=== PATIENT | male | born 1930 | race Caucasian/White ===

== ENCOUNTER 2020-08-07 00:58 | Inpatient (IN) | payer MEDICARE, OTHER ==
[~2020-08-07] VITALS: Ht 157.5 cm; Wt 52.2 kg
--- NOTE | 2020-08-07 01:07 | NUR ---
Jason beatty in [facility] - 08/07/20 at 0251 by EVICTOR PT [id number].
--- NOTE | 2020-08-07 01:07 | NUR ---
MARIANA FROM BOARDING CARE. PT DENIES COMPLAINTS. 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 PT PLACED IN BED 6 ON MONITOR AND PULSE OX. TEMP 100.0, MD AWARE. MD AT BEDSIDE FOR EVAL, AWAITING ORDERS.
--- NOTE | 2020-08-07 01:14 | NUR ---
BLOOD WORK COLLECTED, SENT TO LAB.
--- NOTE | 2020-08-07 01:19 | NUR ---
EMT AT BEDSIDE FOR EKG
[2020-08-07] MEDS ORDERED: ACETAMINOPHEN ES 500 MG TABLET ONE (01:27)
--- NOTE | 2020-08-07 01:28 | NUR ---
URINE COLLECTED AND SENT TO LAB
[2020-08-07] MEDS ORDERED: ACETAMINOPHEN 325 MG TABLET PO ONE (01:30)
[2020-08-07 01:36] LABS: BILIRUBIN,URINE Negative (NEGATIVE); BLOOD, URINE Negative Ery/uL (NEGATIVE); COLOR,URINE Yellow (YELLOW); LEUKOCYTE ESTERASE ,URINE Negative (NEGATIVE); NITRITE, URINE Negative (NEGATIVE); PROTEIN,URINE Negative (NEGATIVE); UGLUCOSE Negative (NEGATIVE); UROBILINOGEN,URINE 0.2 EU/dL (0.2)
[2020-08-07 01:36] LABS: CALCIUM, SERUM 8.9 mg/dL (8.5-10.1); CARBON DIOXIDE 32 mmol/L (21-32); CHLORIDE 104 mmol/L (98-107); CREATININE 0.8 mg/dL (0.6-1.3); GLUCOSE 106 mg/dL (74-106); POTASSIUM 4.1 mmol/L (3.5-5.1); SODIUM SERUM 140 mmol/L (136-145); UREA NITROGEN, BLOOD 25 mg/dL (7-18)
[2020-08-07 01:42] LABS: ALANINE AMINOTRANSFERASE 17 U/L (12-78); ALBUMIN 3.2 g/dL (3.4-5.0); ALKALINE PHOSPHATASE 76 U/L (46-116); ASPARTATE AMINOTRANSFERASE 12 U/L (15-37); BILIRUBIN,DIRECT 0.1 mg/dL (0.0-0.2); BILIRUBIN,TOTAL 0.2 mg/dL (0.2-1.0); TOTAL PROTEIN, SERUM 6.8 g/dL (6.4-8.2)
[2020-08-07 01:59] LABS: BASOPHILS # (AUTO) 0.1 /CMM (0.0-0.2); BASOPHILS % (AUTO) 1.7 % (0.0-2.0); EOSINOPHILS % (AUTO) 2.7 % (0.0-6.0); HEMATOCRIT 39 % (39-51); HEMOGLOBIN 13.1 g/dL (13.5-17.5); LYMPHOCYTES # (AUTO) 1.8 /CMM (0.8-4.8); LYMPHOCYTES % (AUTO) 28.3 % (20.0-44.0); MEAN CORPUSCULAR HGB CONC 33 g/dl (31.0-36.0); MEAN CORPUSCULAR VOLUME 101 fL (80-96); MONOCYTES # (AUTO) 0.6 /CMM (0.1-1.30); MONOCYTES % (AUTO) 9.3 % (2.0-12.0); NEUTROPHILS # (AUTO) 3.6 /CMM (1.8-8.9); PLATELET COUNT (AUTO) 249 /CMM (150-450); WHITE BLOOD COUNT (AUTO) 6.2 K/uL (4.3-11.0)
--- NOTE | 2020-08-07 02:53 | NUR ---
PT ASSIGNED TO 201
--- NOTE | 2020-08-07 02:53 | NUR ---
REPORT CALLED TO M/S [place] WEBB.
[2020-08-07] MEDS ORDERED: MAGNESIUM HYDROXIDE 30 ML UDC PO PRN (03:00)
[2020-08-07] MEDS ORDERED: ONDANSETRON HCL/PF 4 MG/2 ML VIAL IVP PRN (03:00)
[2020-08-07] MEDS ORDERED: ACETAMINOPHEN 325 MG TABLET PO PRN (03:00)
[2020-08-07] MEDS ORDERED: MAG HYDROX/AL HYDROX/SIMETH 30 ML UDC PO PRN (03:00)
[2020-08-07] MEDS ORDERED: MORPHINE SULFATE INJ 2 MG/ML DISP.SYRIN IV PRN (03:00)
[2020-08-07 03:30] VITALS: BP_SYST 164; BP_DIAS 88; BP_DIAS 90
--- NOTE | 2020-08-07 03:30 | NUR ---
RN NOTES RECEIVED PT. FROM ER WITH OF UNABLE TO TAKE CARE HIMSELF AND FEBRILE, A/OX2,PT PULLED OUT HIS IV ACCESS, NOT IN DISTRESS SKIN ASSESSMENT, CALL LIGHT WITHIN REACH, [id number], CONTINUE TO MONITOR
--- NOTE | 2020-08-07 03:45 | NUR ---
RN NOTES NEW IV LINE INSERTED ON THE RIGHT FOREARM GAUGE 22
[2020-08-07] MEDS: IV NS 0.9% 1,000 ML IV PRN (06:04)
--- NOTE | 2020-08-07 06:37 | NUR ---
RN NOTES AWAKE, NOT IN DISTRSS, DENIES PAIN, MORNING CARE RENDERED, PT. NEEDS ATTENDED
--- NOTE | 2020-08-07 07:16 | NUR ---
REPRODUCTION ARTIST NOTES PATIENT IN BED ALERT ORIENTED X 1 . NO ACUTE DISTRESS NOTED. BREATHING UNLABORED. NO SOB NOTED .IV ACCESS PATENT AND INTACT, NO REDNESS, NO SWELLING NOTED. SAFETY MEASURES IN PLACE. CALL LIGHT WITHIN REACH. WILL CONTINUE TO MONITOR ACCORDINGLY.
--- NOTE | 2020-08-07 08:00 | NUR ---
MS RN NOTES PATIENT SEEN AND EVALUATED BY DR WALTER MICHELE MADE AWARE THAT ALLERGIES UNABLE TO OBTAIN.
[2020-08-07 08:10] VITALS: BP 165/91
[2020-08-07 08:24] LABS: BASOPHILS # (AUTO) 0.1 /CMM (0.0-0.2); BASOPHILS % (AUTO) 1.3 % (0.0-2.0); EOSINOPHILS % (AUTO) 2.1 % (0.0-6.0); HEMATOCRIT 41 % (39-51); HEMOGLOBIN 13.5 g/dL (13.5-17.5); LYMPHOCYTES # (AUTO) 1.8 /CMM (0.8-4.8); LYMPHOCYTES % (AUTO) 32.7 % (20.0-44.0); MEAN CORPUSCULAR HGB CONC 33 g/dl (31.0-36.0); MEAN CORPUSCULAR VOLUME 101 fL (80-96); MONOCYTES # (AUTO) 0.6 /CMM (0.1-1.30); MONOCYTES % (AUTO) 10.9 % (2.0-12.0); NEUTROPHILS # (AUTO) 2.9 /CMM (1.8-8.9); PLATELET COUNT (AUTO) 239 /CMM (150-450); RED BLOOD CELL COUNT(AUTO) 4.03 MIL/uL (4.5-6.0); WHITE BLOOD COUNT (AUTO) 5.5 K/uL (4.3-11.0)
[2020-08-07 08:39] LABS: ALBUMIN 3.4 g/dL (3.4-5.0); BILIRUBIN,TOTAL 0.4 mg/dL (0.2-1.0); CALCIUM, SERUM 8.9 mg/dL (8.5-10.1); CREATININE 0.7 mg/dL (0.6-1.3); MAGNESIUM 2.3 mg/dL (1.8-2.4); PHOSPHORUS 3.1 mg/dL (2.5-4.9); POTASSIUM 3.6 mmol/L (3.5-5.1)
--- NOTE | 2020-08-07 11:12 | NUR ---
MS RN NOTES RECEIVED NEW ORDER FROM DR WALTER MICHELE FOR Lovenox 40 MG SQ DAILY, ORDER CLARIFIED AND READ BACK WITH MD, NOTED AND CARRIED OUT.
[2020-08-07] MEDS: ENOXAPARIN SODIUM 40 MG/0.4 ML DISP.SYRIN SQ SCH (12:00)
[2020-08-07 16:00] VITALS: BP 146/90
--- NOTE | 2020-08-07 19:00 | NUR ---
PROPERTY MAINTENANCE TECHNICIAN NOTES PATIENT IN BED ALERT ORIENTED X 1 . NO ACUTE DISTRESS NOTED. BREATHING UNLABORED. NO SOB NOTED .IV ACCESS PATENT AND INTACT, NO REDNESS, NO SWELLING NOTED. NEEDS ATTENDED AND ANTICIPATED. SAFETY MEASURES IN PLACE. CALL LIGHT WITHIN REACH. WILL ENDORSE TO NIGHT NURSE FOR CONTINUITY OF CARE.
--- NOTE | 2020-08-07 19:38 | NUR ---
MS RN: RECEIVED PATIENT Patient in bed, awake, appears restless, trying to get out from bed. IV peripheral line out, patient is A/O x1 to self only with confusion. Denies pain, had BM, turned and repositioned, made comfortable in bed. Fall precaution maintained.
[2020-08-07 22:39] VITALS: BP 133/62
[2020-08-07] MEDS ORDERED: Z GUARD REMEDY 2 OZ OINT TP PRN (23:30)
[2020-08-08] MEDS: IV NS 0.9% 1,000 ML IV PRN ×2 (02:59→16:42)
--- NOTE | 2020-08-08 06:25 | NUR ---
MS RN: END OF SHIFT REPORT Patient in bed, A/O x1 to self only with confusion. Trying to get up from bed, bed alarm sounds, fall precaution maintained. IVF infusing. Tolerating room air. Had BM this shift, incontinent with bladder and bowel. Awaits PT eval. Covid PCR pending result. Will endorse to oncoming RN.
[2020-08-08 06:40] LABS: BASOPHILS # (AUTO) 0.1 /CMM (0.0-0.2); BASOPHILS % (AUTO) 1.2 % (0.0-2.0); EOSINOPHILS % (AUTO) 1.7 % (0.0-6.0); HEMATOCRIT 37 % (39-51); HEMOGLOBIN 12.5 g/dL (13.5-17.5); LYMPHOCYTES # (AUTO) 1.8 /CMM (0.8-4.8); LYMPHOCYTES % (AUTO) 28.4 % (20.0-44.0); MEAN CORPUSCULAR HGB CONC 34 g/dl (31.0-36.0); MEAN CORPUSCULAR VOLUME 100 fL (80-96); MONOCYTES # (AUTO) 0.9 /CMM (0.1-1.30); MONOCYTES % (AUTO) 13.7 % (2.0-12.0); NEUTROPHILS # (AUTO) 3.5 /CMM (1.8-8.9); PLATELET COUNT (AUTO) 226 /CMM (150-450); RED BLOOD CELL COUNT(AUTO) 3.74 MIL/uL (4.5-6.0); WHITE BLOOD COUNT (AUTO) 6.4 K/uL (4.3-11.0)
[2020-08-08 07:00] LABS: CALCIUM, SERUM 8.7 mg/dL (8.5-10.1); CREATININE 0.6 mg/dL (0.6-1.3); POTASSIUM 3.9 mmol/L (3.5-5.1)
[2020-08-08 08:00] VITALS: BP 165/89
[2020-08-08] MEDS: ENOXAPARIN SODIUM 40 MG/0.4 ML DISP.SYRIN SQ SCH (08:03)
--- NOTE | 2020-08-08 09:49 | NUR ---
RN NOTE THE PATIENT IS RECEIVED IN BED. PATIENT IS ALERT AND ORIENTED TO SELF. ABLE TO MAKE NEEDS KNOWN VERBALLY. IN ROOM AIR AND DENIES SOB. RESPIRATION REGULAR AND UNLABORED. DENIES PAIN. LEFT HAND G 24 PATENT AND NS INFUSING AT 75ML/HR AND NO S/S INFILTRATION NOTED. BED LOW AND LOCKED. SIDE RAILS UP X3. CALL LIGHT WITHIN REACH. WILL CONTINUE TO MONITOR.
--- NOTE | 2020-08-08 11:15 | NUR ---
MS/RN NOTE Transferred safely to [facility] along with chart and belongings. Patient in bed, VSS, afebrile, no SOB noted. Denies any pain and discomfort at this time. Bed locked to its lowest position, side rails x2 up, call light in hand. Will continue with current medical management.
--- NOTE | 2020-08-08 15:58 | NUR ---
MS/RN NOTE L hand #24 IV access is infiltrated, removed, and placed clean dry dressing on site. No s/s of infection or bleeding noted on site. Inserted a new IV access on R hand #22, patent and intact, blood return noted, and flushing well. Will continue IV fluids. Will continue to monitor closely.
[2020-08-08 16:00] VITALS: BP 124/72
--- NOTE | 2020-08-08 18:51 | NUR ---
MS/RN CLOSING NOTE Patient resting in bed, A&O x 1, confused. All needs met and attended to. No s/s of any pain/discomfort at this time. Breathing even and non-labored on RA, no SOB noted. No cardiac distress noted. IV access noted on R hand #22 g, patent and intact, and running NS @ 75 ml/hr. Sensation from all peripheral extremities intact. Fall precautions maintained. Will endorse to manager night nurse.
[2020-08-08 20:00] VITALS: BP 123/70
[2020-08-08 20:17] VITALS: BP 123/70
--- NOTE | 2020-08-08 20:29 | NUR ---
MS RN OPENING NOTES RECEIVED PATIENT IN BED, ALERT AND ORIENTED X 1-2. AMBULATORY WITH WALKER, VERBALLY RESPONSIVE AND ABLE TO FOLLOW DIRECTIONS. BREATHING REGULAR AND UNLABORED ON ROOM AIR. LEFT HAND G22 IV LINE INTACT AND PATENT, FLUSHING WELL WITH NO BLEEDING OR S/S OF INFILTRATION NOTED. DENIES SUICIDAL IDEATION OR PAIN/DISCOMFORT AT THIS TIME. BED LOW AND LOCKED ON SEMI FOWLERS POSITION. CALL LIGHT IN REACH. WILL CONTINUE TO MONITOR. Addendum: 08/08/20 at 2045 by PALAK CHADWICK RN MS RN OPENING NOTES RECEIVED PATIENT IN BED, ALERT AND ORIENTED X 1-2. VERBALLY RESPONSIVE JAPANESE SPEAKING. BREATHING REGULAR AND UNLABORED ON ROOM AIR. RIGHT HAND G22 IV LINE INTACT AND PATENT, INFUSING WELL WITH NO BLEEDING OR S/S OF INFILTRATION NOTED. NO S/S OF PAIN/DISCOMFORT SEEN AT THIS TIME. BED LOW AND LOCKED ON SEMI FOWLERS POSITION. CALL LIGHT IN REACH. WILL CONTINUE TO MONITOR.
--- NOTE | 2020-08-09 02:00 | NUR ---
MS RN NOTES PULLED-OUT IV LINE, NEW LINE REINSERTED ON RIGHT WRIST G22 WITH GOOD BLOOD BACKFLOW, FLUSHING WELL.
[2020-08-09 06:16] LABS: BASOPHILS # (AUTO) 0.1 /CMM (0.0-0.2); BASOPHILS % (AUTO) 0.8 % (0.0-2.0); HEMATOCRIT 36 % (39-51); HEMOGLOBIN 12.1 g/dL (13.5-17.5); LYMPHOCYTES # (AUTO) 1.8 /CMM (0.8-4.8); LYMPHOCYTES % (AUTO) 28.2 % (20.0-44.0); MEAN CORPUSCULAR HGB CONC 34 g/dl (31.0-36.0); MEAN CORPUSCULAR VOLUME 100 fL (80-96); MONOCYTES # (AUTO) 0.8 /CMM (0.1-1.30); MONOCYTES % (AUTO) 13.2 % (2.0-12.0); NEUTROPHILS # (AUTO) 3.5 /CMM (1.8-8.9); NEUTROPHILS % (AUTO) 55.8 % (43.0-81.0); PLATELET COUNT (AUTO) 222 /CMM (150-450); RED BLOOD CELL COUNT(AUTO) 3.57 MIL/uL (4.5-6.0); WHITE BLOOD COUNT (AUTO) 6.3 K/uL (4.3-11.0)
[2020-08-09 06:31] LABS: CALCIUM, SERUM 8.7 mg/dL (8.5-10.1); CREATININE 0.7 mg/dL (0.6-1.3); POTASSIUM 3.8 mmol/L (3.5-5.1)
--- NOTE | 2020-08-09 06:45 | NUR ---
MS RN CLOSING NOTES PATIENT IN BED, ALERT AND ORIENTED X 1. AFEBRILE WITH NO S/S OF DISTRESS OBSERVED. RIGHT WRIST G22 IV LINE PATENT AND INFUSING WELL. NO S/S OF PAIN/DISCOMFORT SEEN AT THIS TIME. BED LOW AND LOCKED ON SEMI FOWLERS POSITION. CALL LIGHT IN REACH. WILL ENDORSE TO MORNING SHIFT FOR AMISHA.
--- NOTE | 2020-08-09 07:30 | NUR ---
ALERT AND ORIENTED X1.SIDE RAILS UP PLEASANT.SKIN WARM AND DRY. VS STABLE.REFUSING IV FLUIDS.
[2020-08-09 08:00] VITALS: BP 130/74
[2020-08-09] MEDS: ENOXAPARIN SODIUM 40 MG/0.4 ML DISP.SYRIN SQ SCH (10:05)
--- NOTE | 2020-08-09 13:10 | NUR ---
REPORT CALLED TO TAMIKO AT FACILITY.ALL PAPERS SIGNED ALONG WITH BELONGING SHEET.
--- NOTE | 2020-08-09 14:00 | NUR ---
NOTED SEVERAL SKIN TEARS ON LT. FOREARM ALONG WITH BRUISES.SITES CLEANSED WITH SALINE THEN STERI STRIPS APPLIED ALONG WITH TEGADERM.
--- NOTE | 2020-08-09 14:35 | NUR ---
AMBULANCE HERE. CONTAINER CRANE OPERATOR GIVEN REPORT.AND PAPERWORK.TAKEN TO FACILITY VIA AMB.
== END 2020-08-09 14:30 | DRG 70 ==
LOC: ER 01:00 → MEDSG2 03:01 → MED 08-08 10:30
PROVIDERS: ADMIT Internal Medicine; ATTEND Internal Medicine
DX: G93.40 Encephalopathy, unspecified (principal); N17.0 Acute kidney failure with tubular necrosis; E43 Unspecified severe protein-calorie malnutrition; D68.69 Other thrombophilia; R64 Cachexia; R50.9 Fever, unspecified; Z73.6 Limitation of activities due to disability; I10 Essential (primary) hypertension; Z68.21 Body mass index [BMI] 21.0-21.9, adult
CPT/HCPCS: 36415; 71045-TC; 80048-TC; 80053-TC; 80061-TC; 80076-TC; 81001; 83605-TC; 83735-TC; 84100-TC; 84484-TC; 85025-TC; 85730-TC; 87040-TC; 87081-TC; 87086-TC; 97116-TC; 97530-TC; G0378; J1650; J7030; U0003